=== PATIENT | female | born 1960 | race Caucasian/White ===

== ENCOUNTER → 2016-08-17 | Outpatient (CLI) | payer OTHER ==
--- NOTE | 2016-08-18 15:27 | XR ---
EXAMINATION TYPE: XR hand complete LT DATE OF EXAM: 08/17/2016 1:54 PM CLINICAL HISTORY: pain TECHNIQUE: Frontal, lateral and oblique images of the left hand are obtained. COMPARISON: None. FINDINGS: There is no acute fracture/dislocation evident. The joint spaces appear within normal limi ts. The overlying soft tissue appears unremarkable. IMPRESSION: There is no acute fracture or dislocation. ICD 10 NO FRACTURE, INITIAL EVALUATION
== END | disposition home or self-care (01) ==
LOC: RADXRYALE 11:25
PROVIDERS: ATTEND Physician Assistant Medical
DX: M05.79 Rheumatoid arthritis with rheumatoid factor of multiple sites without organ or systems involvement (principal); M79.642 Pain in left hand

== ENCOUNTER → 2020-08-04 | Outpatient (CLI) | payer OTHER ==
--- NOTE | 2020-08-04 11:39 | XR ---
EXAMINATION TYPE: XR knee complete LT DATE OF EXAM: 08/04/2020 CLINICAL HISTORY: General knee pain after strain injury. TECHNIQUE: Three views of the left knee are obtained. COMPARISON: None. FINDINGS: There is no acute fracture/dislocation evident in left knee. Moderate narrowing and spurri ng medial tibiofemoral compartment. Overlying soft tissues unremarkable. IMPRESSION: There is no acute fracture or dislocation in the left knee.
== END | disposition home or self-care (01) ==
LOC: RADXRYALE 11:07
PROVIDERS: ATTEND Physician Assistant Medical
DX: M25.562 Pain in left knee (principal)

== ENCOUNTER → 2020-09-29 | Outpatient (CLI) | payer OTHER ==
--- NOTE | 2020-09-29 16:03 | XR ---
EXAMINATION TYPE: XR chest 2V DATE OF EXAM: 09/29/2020 COMPARISON: 03/11/2015 HISTORY: 60-year-old female smoker, COPD TECHNIQUE: Frontal and lateral views FINDINGS: The cardiomediastinal silhouette, aorta, and pulmonary vasculature are within normal limits. Nodular density at each lower lung. No consolidation or pleural effusion. Moderate endplate spondylosis midth oracic spine. IMPRESSION: Nodular density in each lower lung may represent nipple shadow. Recommend follow-up in 6-8 weeks util izing nipple markers. No acute process seen.
== END ==
LOC: RADXRYALE 13:59
PROVIDERS: ATTEND Physician Assistant Medical
DX: J44.9 Chronic obstructive pulmonary disease, unspecified (principal); J98.4 Other disorders of lung; F17.200 Nicotine dependence, unspecified, uncomplicated
CPT/HCPCS: 71046

== ENCOUNTER → 2021-09-08 | Outpatient (CLI) | payer OTHER ==
--- NOTE | 2021-09-08 15:30 | CT ---
EXAMINATION TYPE: CT abdomen pelvis wo con DATE OF EXAM: 09/08/2021 HISTORY: RLQ pain. CT DLP: 323 mGycm. Automated Exposure Control for Dose Reduction was Utilized. TECHNIQUE: CT scan of the abdomen and pelvis is performed with oral but without IV contrast. IV cont rast cannot be given because of inability to obtain IV access despite multiple attempts COMPARISON: CT abdomen March 28, 2012 FINDINGS: Within the limitations of a non-contrast study, the following observations are made. LUNG BASES: Mild posterior bibasilar linear scarring and atelectasis is now seen. LIVER/GB: A few scattered subcentimeter hypodense lesions throughout the liver are too small to furth er characterize. New psuf-ad-mwrnehos Central extrahepatic biliary dilatation to 11 mm up to ampulla image 44. No obstructing mass or calculus is clearly seen. No significant intrahepatic biliary dilata tion. PANCREAS: No new pancreatic ductal dilatation. SPLEEN: No significant abnormality is seen. ADRENALS: No significant abnormality is seen. KIDNEYS: Hyperdense material filling the bilateral collecting systems of uncertain etiology given sym metry and lack of IV contrast given. There is suspected a tiny amount of IV contrast was given accoun ting for this. Mild to moderately distended bladder. No focal renal calculus. BOWEL: Oral contrast reaches level of the mid transverse colon. Contrast is passed from stomach which is slightly suboptimally evaluated. No fissures small bowel dilatation. Mild prominence of the colon is seen. There is normal contrast filled appendix thinning medially from cecum seen coronal images 4 7 through 53. There is however suspicious abnormal moderate to severe concentric wall thickening in t he cecum over a roughly 10 to 11 cm segment coronal image 28. Terminal ileum appears within normal li mits on coronal image 39. GENITAL ORGANS: Anteverted uterus. Occasional scattered pelvic phleboliths. LYMPH NODES: No greater than 1cm abdominal or pelvic lymph nodes are appreciated. OSSEOUS STRUCTURES: Prfeuulu-eh-dieuvf disc space narrowing with endplate sclerosis and spurring at t he left L1-L2 level. OTHER: Mild/moderate calcified plaque of the aorta extends into branch vessels. IMPRESSION: No CT evidence for acute appendicitis. No bowel obstruction. Suspicious jtgovhxv-wa-nvuin e concentric wall thickening in the cecum extending into the right colon worrisome for neoplasm. [place] noscopy follow-up for confirmation advised.
== END | disposition home or self-care (01) ==
LOC: RADCTMAIN 12:21
PROVIDERS: ATTEND Physician Assistant
DX: K63.89 Other specified diseases of intestine (principal)
CPT/HCPCS: 74176

== ENCOUNTER 2021-10-07 07:53 | Day surgery (SDC) | payer OTHER ==
[2021-10-06 12:10] VITALS: BMI 22.6
[~2021-10-07 07:53] MED LIST: LACTATED RINGERS 1,000 ML IV SCH
[2021-10-07 08:49] VITALS: TEMP 97.9
[2021-10-07] MEDS ORDERED: PROPOFOL 10 MG/ML 20 ML VIAL IV ONE (09:19)
[2021-10-07] MEDS ORDERED: PHENYLEPHRINE-0.9% NACL SYG 1,000 MCG/10 ML SYRINGE ONE (09:19)
--- NOTE | 2021-10-07 10:09 | P.PCN ---
Date of Procedure: 10/07/21 Preoperative Diagnosis: Colonic thickening Postoperative Diagnosis: Ascending colon mass Procedure(s) Performed: Colonoscopy with biopsy and tattoo placement Anesthesia: MAC Surgeon: Jaspreet Roth Pathology: other (Biopsies of the ascending colon mass) Condition: stable Disposition: same day Indications for Procedure: 61-year-old female presents for colonoscopy. A recent CAT scan she was found to have thickening of the right colon. She is also having abdominal pain. Risks, benefits and alternatives were provided to the patient. Operative Findings: Ascending colon mass taking up the full circumference of the descending colon with some mild stenosis Description of Procedure: The patient was brought to the endoscopy suite and placed in left lateral decubitus position and adequate sedation was achieved using conscious sedation. A digital rectal exam was performed and mild internal hemorrhoids palpated. An endoscope was then placed in the rectum and advanced to the cecum as identified by limits including the appendiceal orifice and the ileocecal valve. The prep was good. The colonoscope was then slowly withdrawn, examining for any mucosal abnormalities. The cecum, ascending, transverse, descending and sigmoid colon were visualized adequately. A circumferential mass was noted just distal to the cecum in the ascending colon. This was very friable and thickened. Multiple biopsies were taken. Tattoo was also placed around this area. This circumferential mass was noted in the rock small portion of the descending colon and did not reach up towards the hepatic flexure. There are no additional polyps. There is no significant evidence of diverticulosis. Retroflexion was performed in the rectum and internal hemorrhoids were visible. Excess air was removed, the colonoscope withdrawn and the procedure terminated. The patient was then transferred to the recovery unit in stable condition. Further discussion to be had with the patient likely surgical planning and plan for future colonoscopy after surgery..
[2021-10-07] MEDS ORDERED: ONDANSETRON 4 MG/2 ML VIAL IVP ONE ×2 (10:12→10:17)
[2021-10-07] MEDS ORDERED: ONDANSETRON 4 MG/2 ML VIAL ONE (10:13)
[2021-10-07 10:44] VITALS: RESP 16
[2021-10-07 11:56] VITALS: BP 111/78; PULSE 75
== END 2021-10-07 12:07 | disposition home or self-care (01) ==
LOC: ORWHC2ENDO 07:53
PROVIDERS: ATTEND Surgery
DX: K63.89 Other specified diseases of intestine (principal); M19.93 Secondary osteoarthritis, unspecified site; I10 Essential (primary) hypertension; G43.909 Migraine, unspecified, not intractable, without status migrainosus; F32.A Depression, unspecified; Z98.890 Other specified postprocedural states; Z80.1 Family history of malignant neoplasm of trachea, bronchus and lung; Z80.8 Family history of malignant neoplasm of other organs or systems; Z82.3 Family history of stroke; Z79.891 Long term (current) use of opiate analgesic; Z79.899 Other long term (current) drug therapy; Z88.5 Allergy status to narcotic agent
CPT/HCPCS: 88305; 45380; 45381; J2405; J2370; J2704

== ENCOUNTER 2021-11-30 09:45 | Day surgery (SDC) | payer OTHER ==
[2021-11-25 13:52] VITALS: BMI 22.2
[2021-11-30 10:45] VITALS: RESP 16; TEMP 98.6
[2021-11-30] MEDS ORDERED: ONDANSETRON 4 MG/2 ML VIAL ONE (11:05)
[2021-11-30] MEDS ORDERED: PHENYLEPHRINE-0.9% NACL SYG 1,000 MCG/10 ML SYRINGE ONE (11:12)
[2021-11-30] MEDS ORDERED: PROPOFOL 10 MG/ML 20 ML VIAL IV ONE (11:12)
--- NOTE | 2021-11-30 11:37 | P.PCN ---
Date of Procedure: 11/30/21 Procedure(s) Performed: BRIEF HISTORY: Patient is a 61-year-old pleasant white female scheduled for an elective colonoscopy as a part of abnormal recent colonoscopy that was done by Dr. Roth in September 2021. She recently had severe constipation for the last 3-4 months admitted to the emergency room with severe abdominal pain on August [address] of abdomen that showed moderate to severe concentric wall thickening involving the cecum extending into the right colon. She had a colonoscopy done by Dr. Roth that showed a circumferential mass in the distal ascending colon with multiple biopsies done which revealed ulcerated, inflamed polypoid granulation tissue with no evidence of malignancy. She was advised to have surgery done but patient is seeking a second opinion and hence is scheduled for repeat colonoscopy today to evaluate this further. PROCEDURE PERFORMED: Colonoscopy with multiple biopsies. PREOPERATIVE DIAGNOSIS: Abnormal colonoscopy 2 months ago that showed ascending colon mass but biopsies were negative for malignant. IV sedation per Anesthesia. PROCEDURE: After informed consent was obtained, the patient, was brought into the endoscopy unit. IV sedation was administered by Anesthesia under continuous monitoring. Digital rectal examination was normal. Initially the Olympus CF-160 flexible video colonoscope was then inserted in the rectum, gradually advanced into the cecum without any difficulty. Careful examination was performed as the scope was gradually being withdrawn. Ileocecal valve and the appendiceal orifice were visualized and appeared normal. Prep was fair. Mucosa of the cecum, appeared normal. At the junction of the cecum and ascending colon there was luminal narrowing but no impedance to the passage of the scope. At the site of the narrowing was 3 cm superficial ulceration identified but no masses seen. Multiple biopsies were done from the ulceration. There were 2 there was evidence of tattooing with Pamela ink noted at the site. The rest of the ascending colon, transverse colon, descending colon, sigmoid colon, and rectum appeared normal. Retroflexion was performed in the rectum and no lesions were seen. The patient tolerated the procedure well. IMPRESSION: 3 cm superficial ascending colon ulcer at the junction of the cecum with luminal narrowing, but no masses identified. Status post multiple biopsies to rule out ischemia colitis Rest of the colon appeared normal RECOMMENDATIONS: Findings of this examination were discussed with the patient as well as a family. She was advised to follow with the biopsy results and she'll be seen in office in 2 weeks..
[2021-11-30 11:55] VITALS: BP 122/87; PULSE 77
== END 2021-11-30 12:13 | disposition home or self-care (01) ==
LOC: ORWHC2ENDO 09:45
PROVIDERS: ATTEND Internal Medicine Gastroenterology
DX: K63.3 Ulcer of intestine (principal); I10 Essential (primary) hypertension; Z79.899 Other long term (current) drug therapy; Z88.5 Allergy status to narcotic agent; Z85.41 Personal history of malignant neoplasm of cervix uteri
CPT/HCPCS: 88305; 45380; J2405; J2370; J2704

== ENCOUNTER → 2023-03-08 | Outpatient (CLI) | payer OTHER ==
--- NOTE | 2023-03-10 23:22 | MM ---
Reason for Exam: Screening (asymptomatic). Last mammogram was performed 8 year(s) and 3 month(s) ago. Patient History: Menarche at age 11. First Full-Term at age 25. Right ovary removed at age 30. Postmenopausal. Patient has history of breast feeding. Patient used Hormonal Contraceptives for 20 years. Risk Values: Milla 5 year model risk: 1.8%. NCI Lifetime model risk: 7.2%. Prior Study Comparison: 03/13/2011 Bilateral Diagnostic Mammogram, [facility]. 01/26/2012 Bilateral Diagnostic Mammogram, [facility]. 12/08/2014 Bilateral Screening Mammogram, [facility]. Tissue Density: The breast tissue is heterogeneously dense. This may lower the sensitivity of mammography. Findings: Analyzed By CAD. Centrally located asymmetric density posterior left CC view is more defined. This may represent superimposition shadow but further evaluation is recommended. Unchanged laxity retail lymph nodes on the left. Unchanged areas of asymmetric density superiorly in both breasts on the MLO views. Overall Assessment: Incomplete: need additional imaging evaluation, BI-RAD 0 Management: Special View Mammogram of the left breast. To include spot 3-D CC, 3-D CC rolled medial, and 3-D lateral views. Targeted left breast ultrasound if any persisting abnormality. [facility] will attempt to contact patient to return for supplemental views and ultrasound if indicated. Electronically signed and approved by: Magui Perdue M.D. Radiologist
== END | disposition home or self-care (01) ==
LOC: RADMAMWWP 13:23
PROVIDERS: ATTEND Family Medicine
DX: Z12.31 Encounter for screening mammogram for malignant neoplasm of breast (principal); Z78.0 Asymptomatic menopausal state
CPT/HCPCS: 77067

== ENCOUNTER → 2023-03-21 | Outpatient (CLI) | payer OTHER ==
--- NOTE | 2023-03-21 13:20 | MM ---
Reason for Exam: Additional evaluation requested from abnormal screening. Last screening mammogram was performed less than 1 month ago. Patient History: Menarche at age 11. First Full-Term at age 25. Right ovary removed at age 30. Postmenopausal. Patient has history of breast feeding. Patient used Hormonal Contraceptives for 20 years. Risk Values: Milla 5 year model risk: 1.8%. NCI Lifetime model risk: 7.2%. Prior Study Comparison: 01/26/2012 Bilateral Diagnostic Mammogram, [facility]. 12/08/2014 Bilateral Screening Mammogram, [facility]. 03/08/2023 Bilateral MG screening mammo w CAD, [facility]. Tissue Density: Left: The breast tissue is heterogeneously dense. This may lower the sensitivity of mammography. Findings: Analyzed By CAD. Under compression no persistent suspicious density or architectural distortion or spiculated or lobular mass is evident. Mediolateral view appears normal. Findings are likely summation density. No suspicious groups of microcalcifications, spiculated or lobular masses, architectural distortion or other secondary signs of malignancy are mammographically apparent. Overall Assessment: Benign, BI-RAD 2 Management: Screening Mammogram of both breasts in 1 year. A negative mammogram report should not preclude additional follow up of suspicious palpable abnormalities. Patient should continue monthly self breast exam. A clinical breast exam by your physician is recommended on an annual basis and results should be correlated with mammographic findings. Electronically signed and approved by: Jarad Silvestre D.O. Radiologis
== END | disposition home or self-care (01) ==
LOC: RADMAMWWP 12:46
PROVIDERS: ATTEND Family Medicine
DX: R92.8 Other abnormal and inconclusive findings on diagnostic imaging of breast (principal); Z78.0 Asymptomatic menopausal state
CPT/HCPCS: 77065; G0279; 77061